=== PATIENT | female | born 1980 | race Caucasian/White ===

== ENCOUNTER 2016-09-23 11:55 | Emergency (ER) | payer OTHER ==
[~2016-09-23] VITALS: Ht 185.4 cm; Wt 99.8 kg
[~2016-09-23 11:55] MED LIST: AMITRIPTYLIN PO; CATAFLAM50 MG PO; DICYCLOMINE HCL10 MG PO; FLAGYL500 MG PO; HYDROCODONE BIT1 T11 PO; KEFLEX500 MG PO; MOTRIN600 MG PO; MOTRIN800 MG PO; NEURONTIN300 MG PO; NKHM; OMEPRAZOLE40 MG PO; ROBITUSSIN AC 10 MG/ PO; ULTRAM50 MG PO; ZITHROMAX250 MG PO
[2016-09-23 12:56] LABS: BASO # 0.1 10*3/uL (0.0-0.1); EOS % 0.8 % (1.0-4.0); HEMATOCRIT 37.8 % (37.0-47.0); HEMOGLOBIN 13.1 g/dl (12.0-16.0); LYMPH # 1.5 10*3/uL (1.3-4.4); LYMPH % 28.2 % (27.0-41.0); MEAN CORPUSCULAR HGB 32.6 pg (27.0-31.0); MEAN CORPUSCULAR HGB CONC 34.7 g/dl (33.0-37.0); MEAN PLATELET VOLUME 10.3 fl (9.6-12.3); MONO # 0.5 10*3/uL (0.1-1.0); MONO % 9.8 % (3.0-9.0); NEUT # 3.1 10*3/uL (2.3-7.9); PLATELET COUNT AUTOMATED 212 10*3/uL (130-400); RED BLOOD COUNT 4.02 10*6/uL (4.10-5.10); RED CELL DISTRI WIDTH 12.3 % (0-14.5); WHITE BLOOD COUNT 5.2 10*3/uL (4.8-10.8)
[2016-09-23 13:11] LABS: ALBUMIN 3.6 gm/dl (3.1-4.5); ALKALINE PHOSPHATASE 64 U/L (45-117); BILIRUBIN, TOTAL 0.4 mg/dl (0.2-1.0); BUN 10 mg/dl (7-24); CARBON DIOXIDE 24 mmol/L (21-32); CHLORIDE 109 mmol/L (98-107); EST GLOM FILT AFRICAN AMERICAN > 60 ml/min; GLUCOSE 108 mg/dL (65-99); POTASSIUM 4.1 mmol/L (3.5-5.1); SGOT/AST 24 IU/L (3-35); SGPT/ALT 44 U/L (12-78); SODIUM 141 mmol/L (136-145); TOTAL PROTEIN 6.9 gm/dL (6.4-8.2)
[2016-09-23] MEDS ORDERED: PROAIR HFA8.5 GM INH (14:22)
[2016-09-23] MEDS ORDERED: PREDNISONE20 M1 PO (14:22)
[2016-09-23] MEDS ORDERED: AUGMENTIN 875875 MG PO (14:22)
[2016-09-27] MEDS ORDERED: FLONASE ALLERG9.9 ML NAS (23:47)
[2016-09-27] MEDS ORDERED: ROBITUSSIN AC 110 ML PO (23:47)
[2016-09-27] MEDS ORDERED: PREDNISONE10 MG PO (23:47)
[2016-09-27] MEDS ORDERED: CLARITIN10 MG PO (23:47)
== END 2016-09-23 14:18 | disposition home or self-care (01) ==
LOC: ED 11:55
PROVIDERS: Nurse Practitioner Family
DX: J20.8 Acute bronchitis due to other specified organisms (principal); R06.2 Wheezing; F17.200 Nicotine dependence, unspecified, uncomplicated; Z88.8 Allergy status to other drugs, medicaments and biological substances

== ENCOUNTER 2016-12-18 20:02 | Emergency (ER) | payer OTHER ==
[~2016-12-18] VITALS: Ht 185.4 cm; Wt 63.5 kg
[~2016-12-18 20:02] MED LIST changes: +AUGMENTIN 875875 MG PO; +CLARITIN10 MG PO; +FLONASE ALLERG9.9 ML NAS; +PREDNISONE10 MG PO; +PREDNISONE20 M1 PO; +PROAIR HFA8.5 GM INH; +ROBITUSSIN AC 110 ML PO
[2016-12-18 20:32] LABS: BILIRUBIN NEGATIVE (NEGATIVE); BLOOD TRACE-INTACT (NEGATIVE); CLARITY CLEAR (CLEAR); COLOR YELLOW (YELLOW); GLUCOSE NEGATIVE (NEGATIVE); KETONE NEGATIVE (NEGATIVE); LEUKO ESTERASE NEGATIVE (NEGATIVE); NITRITE NEGATIVE (NEGATIVE); PH 5.5 (5.0-9.0); PROTEIN NEGATIVE (NEGATIVE); SPECIFIC GRAVITY >= 1.030 (1.005-1.030); UROBILINOGEN 0.2 E.U./dl (0.2-1.0)
[2016-12-18 20:39] LABS: BACTERIA 2+; RBC 0-2 rbc/hpf (0-2); URINE REFLEX COMMENT YES (NO)
[2016-12-18 20:59] LABS: BASO # 0.1 10*3/uL (0.0-0.1); BASO % 0.6 % (0.0-1.0); EOS # 0.1 10*3/uL (0.0-0.4); HEMATOCRIT 34.2 % (37.0-47.0); HEMOGLOBIN 11.9 g/dl (12.0-16.0); LYMPH # 2.2 10*3/uL (1.3-4.4); LYMPH % 28.5 % (27.0-41.0); MEAN CELL VOLUME 95.5 fl (81.0-99.0); MEAN CORPUSCULAR HGB 33.2 pg (27.0-31.0); MEAN CORPUSCULAR HGB CONC 34.8 g/dl (33.0-37.0); MEAN PLATELET VOLUME 10.4 fl (9.6-12.3); MONO # 0.7 10*3/uL (0.1-1.0); MONO % 8.4 % (3.0-9.0); NEUT # 4.7 10*3/uL (2.3-7.9); NEUT % 61.1 % (47.0-73.0); PLATELET COUNT AUTOMATED 231 10*3/uL (130-400); RED BLOOD COUNT 3.58 10*6/uL (4.10-5.10); RED CELL DISTRI WIDTH 12.9 % (0-14.5); WHITE BLOOD COUNT 7.7 10*3/uL (4.8-10.8)
[2016-12-18 21:16] LABS: ALBUMIN 3.6 gm/dl (3.1-4.5); ALKALINE PHOSPHATASE 61 U/L (45-117); BILIRUBIN, TOTAL 0.3 mg/dl (0.2-1.0); BUN 15 mg/dl (7-24); CARBON DIOXIDE 28 mmol/L (21-32); CHLORIDE 108 mmol/L (98-107); EST GLOM FILT AFRICAN AMERICAN > 60 ml/min; GLUCOSE 83 mg/dL (65-99); POTASSIUM 3.9 mmol/L (3.5-5.1); SGOT/AST 16 IU/L (3-35); SGPT/ALT 30 U/L (12-78); SODIUM 143 mmol/L (136-145); TOTAL PROTEIN 6.6 gm/dL (6.4-8.2)
[2016-12-18] MEDS ORDERED: MYLICON, MYLANT80 MG PO (21:36)
== END 2016-12-18 21:40 | disposition home or self-care (01) ==
LOC: ED 20:02
PROVIDERS: Nurse Practitioner Family
DX: K58.9 Irritable bowel syndrome, unspecified (principal); F17.200 Nicotine dependence, unspecified, uncomplicated; Z88.8 Allergy status to other drugs, medicaments and biological substances

== ENCOUNTER 2016-12-23 06:42 | Emergency (ER) | payer OTHER ==
[~2016-12-23] VITALS: Ht 185.4 cm; Wt 108.9 kg
[~2016-12-23 06:42] MED LIST changes: +MYLICON, MYLANT80 MG PO
[2016-12-23] MEDS ORDERED: NAPROSYN500 MG PO (08:14)
== END 2016-12-23 08:17 | disposition home or self-care (01) ==
LOC: ED 06:42
DX: S93.402A Sprain of unspecified ligament of left ankle, initial encounter (principal); K58.9 Irritable bowel syndrome, unspecified; Z88.8 Allergy status to other drugs, medicaments and biological substances; W17.89XA Other fall from one level to another, initial encounter; Y93.89 Activity, other specified; Y92.9 Unspecified place or not applicable; Y99.9 Unspecified external cause status

== ENCOUNTER 2017-01-24 10:27 | Emergency (ER) | payer OTHER ==
[~2017-01-24] VITALS: Ht 185.4 cm; Wt 108.9 kg
[~2017-01-24 10:27] MED LIST changes: +NAPROSYN500 MG PO
[2017-01-24] MEDS ORDERED: NORCO 5-325 TA1 EACH PO (12:41)
== END 2017-01-24 12:46 | disposition home or self-care (01) ==
LOC: ED 10:27
DX: S92.505A Nondisplaced unspecified fracture of left lesser toe(s), initial encounter for closed fracture (principal); F17.200 Nicotine dependence, unspecified, uncomplicated; Z88.8 Allergy status to other drugs, medicaments and biological substances; W22.01XA Walked into wall, initial encounter; Y93.89 Activity, other specified; Y92.9 Unspecified place or not applicable; Y99.9 Unspecified external cause status

== ENCOUNTER 2017-02-15 08:22 | Emergency (ER) | payer OTHER ==
[~2017-02-15] VITALS: Wt 77.1 kg
[~2017-02-15 08:22] MED LIST changes: +NORCO 5-325 TA1 EACH PO
== END 2017-02-15 10:58 | disposition home or self-care (01) ==
LOC: ED 08:22
DX: S46.911A Strain of unspecified muscle, fascia and tendon at shoulder and upper arm level, right arm, initial encounter (principal); F17.200 Nicotine dependence, unspecified, uncomplicated; Z88.8 Allergy status to other drugs, medicaments and biological substances; X50.0XXA Overexertion from strenuous movement or load, initial encounter; Y93.89 Activity, other specified; Y92.9 Unspecified place or not applicable; Y99.9 Unspecified external cause status

== ENCOUNTER 2017-04-06 19:15 | Emergency (ER) | payer OTHER ==
[~2017-04-06] VITALS: Ht 185.4 cm; Wt 59.0 kg
[2017-04-06] MEDS ORDERED: DIFLUCAN150 MG PO (21:10)
[2017-04-06] MEDS ORDERED: KEFLEX500 M1 PO (21:10)
== END 2017-04-06 21:13 | disposition home or self-care (01) ==
LOC: ED 19:15
DX: S90.852A Superficial foreign body, left foot, initial encounter (principal); F17.200 Nicotine dependence, unspecified, uncomplicated; Z88.8 Allergy status to other drugs, medicaments and biological substances; X58.XXXA Exposure to other specified factors, initial encounter; Y93.01 Activity, walking, marching and hiking; Y92.832 Beach as the place of occurrence of the external cause; Y99.8 Other external cause status

== ENCOUNTER → 2017-04-30 | Outpatient (CLI) | payer OTHER ==
[~2017-04-30] MED LIST changes: +DIFLUCAN150 MG PO; +KEFLEX500 M1 PO
[2017-04-30 11:05] LABS: HEMATOCRIT 40.5 % (37.0-47.0); HEMOGLOBIN 13.9 g/dl (12.0-16.0); MEAN CELL VOLUME 95.7 fl (81.0-99.0); MEAN CORPUSCULAR HGB 32.9 pg (27.0-31.0); MEAN CORPUSCULAR HGB CONC 34.3 g/dl (33.0-37.0); MEAN PLATELET VOLUME 9.8 fl (9.6-12.3); RED BLOOD COUNT 4.23 10*6/uL (4.10-5.10); RED CELL DISTRI WIDTH 12.5 % (0-14.5); WHITE BLOOD COUNT 6.7 10*3/uL (4.8-10.8)
[2017-04-30 11:40] LABS: ALBUMIN 3.7 gm/dl (3.1-4.5); ALKALINE PHOSPHATASE 77 U/L (45-117); BUN 14 mg/dl (7-24); CHLORIDE 107 mmol/L (98-107); CHOLESTEROL 145 mg/dL (<200); CREATININE 0.82 mg/dL (0.55-1.02); HDL CHOLESTEROL 57 mg/dl (40-60); LDL CHOLESTEROL 52 mg/dL (9-159); POTASSIUM 4.5 mmol/L (3.5-5.1); SGOT/AST 17 IU/L (3-35); SGPT/ALT 30 U/L (12-78); SODIUM 139 mmol/L (136-145); TOTAL PROTEIN 7.6 gm/dL (6.4-8.2); TRIGLYCERIDES 182 mg/dl (<150); VLDL CHOLESTEROL 36 mg/dL (6-40)
== END | disposition home or self-care (01) ==
LOC: LAB 04-28 11:54
PROVIDERS: Family Medicine
DX: E55.9 Vitamin D deficiency, unspecified (principal); F41.1 Generalized anxiety disorder; E74.00 Glycogen storage disease, unspecified; R53.83 Other fatigue; R05 Cough; E78.1 Pure hyperglyceridemia

== ENCOUNTER → 2017-07-06 | Day surgery (SDC) | payer OTHER ==
[2017-07-01 10:17] VITALS: BP 124/87
[2017-07-01 11:06] LABS: BASO # 0.1 10*3/uL (0.0-0.1); BASO % 0.7 % (0.0-1.0); EOS % 0.5 % (1.0-4.0); HEMATOCRIT 36.3 % (37.0-47.0); LYMPH # 1.8 10*3/uL (1.3-4.4); LYMPH % 24.6 % (27.0-41.0); MEAN CELL VOLUME 92.1 fl (81.0-99.0); MEAN CORPUSCULAR HGB CONC 35.8 g/dl (33.0-37.0); MEAN PLATELET VOLUME 9.8 fl (9.6-12.3); MONO # 0.5 10*3/uL (0.1-1.0); MONO % 6.3 % (3.0-9.0); NEUT # 4.9 10*3/uL (2.3-7.9); NEUT % 67.4 % (47.0-73.0); PLATELET COUNT AUTOMATED 275 10*3/uL (130-400); RED BLOOD COUNT 3.94 10*6/uL (4.10-5.10); RED CELL DISTRI WIDTH 12.8 % (0-14.5); WHITE BLOOD COUNT 7.3 10*3/uL (4.8-10.8)
[2017-07-06] VITALS (7 sets, daily range): BP systolic 124–142; BP diastolic 75–94
[~2017-07-06] VITALS: Ht 185.4 cm; Wt 113.4 kg
[~2017-07-06] MED LIST changes: +ELMIRON100 MG PO; +PYRIDIUM200 M1 PO; +SPRINTEC 35 MCG1 TA1 PO
--- NOTE | ~2017-07-06 | O ---
[place], [place] OPERATIVE NOTE NAME: JEANMARIE KELLER [facility] #: [id number] UNIT #: [id number] ROOM: DOCTOR: KYLER BASSETT MD BIRTHDATE: [birth year] DOS: 07/06/2017 PREOPERATIVE DIAGNOSES: History of pelvic pain, history of endometriosis per previous laparoscopy, dyspareunia, history of IC and status post left oophorectomy. POSTOPERATIVE DIAGNOSES: History of pelvic pain, history of endometriosis per previous laparoscopy, dyspareunia, history of IC and status post left oophorectomy. OPERATIVE FINDINGS: Revealed a completely normal pelvis. OPERATION: Diagnostic laparoscopy. SURGEON: Dr. Bassett and Dr. Arias. ANESTHESIA: General. ESTIMATED BLOOD LOSS: Minimal. REPLACEMENTS: IV fluids and Toradol. COMPLICATIONS: There were no complications. CONDITION: The patient's condition to recovery stable. OPERATIVE SUMMARY: The patient was taken to the operating room in supine position, general anesthesia, endotracheal intubation, lithotomy position, prepped and draped in routine manner. A catheter was placed to straight drain and we then grasped the cervix and placed a cervical manipulator. Once that was completed, we made an infraumbilical and suprapubic incisions under direct visualization, placed a 5 mm trocar sleeve and laparoscope and insufflated with CO2, followed by placement of another 5 mm trocar sleeve and probe through the suprapubic incision. Systematic examination of the pelvis revealed the uterus to be normal in size, configuration and mobility. The anterior and posterior cul-de-sacs were normal. The right tube and ovary were normal. The left tube was normal. There was some minimal scarring along the descending colon with very light filmy adhesions as well as a little bit of scarring in the left side wall of the pelvis. It was all old. There was absolutely no evidence of endometriosis, much less any active endometriosis. Following the survey of the normal pelvis, we did evaluate the appendix, which appeared to be normal, as did the ascending and descending colon. The liver edge was also what was noted it was also normal. The upper abdomen otherwise was free of any other gross disease, adhesions, etc. Once that survey was completed, we rechecked the pelvis and again found absolutely no evidence of any atypicality. The right uterine vasculature was prominent, but that was the only observation at all. Having completed this normal survey, we removed the suprapubic trocar sleeve and probe. Noting no excessive anterior abdominal bleeding, CO2 was allowed to escape, followed by removal of the infraumbilical trocar sleeve and laparoscope. Each incision was closed with subcuticular 3-0 Monocryl suture. Steri-Strips [place], [place] OPERATIVE NOTE NAME: JEANMARIE KELLER UNIT #: [id number] ROOM: DOCTOR: KYLER BASSETT MD BIRTHDATE: [birth year] and dressings placed. Instrumentation was removed from the vagina as well as the Dyer catheter. No excessive bleeding was noted. The patient was then cleaned off, taken out of lithotomy position, awakened, extubated and transferred to recovery in satisfactory condition with clear and adequate urine output, stable sponge and instrument count, good hemostasis and stable vital signs. KYLER BASSETT MD CM:OPRECORD:OPERATIVE NOTE [id number] KYLER BASSETT MD 07/06/17 1007 interface
--- NOTE | ~2017-07-06 | WRIGHTHP ---
[place], [place] PATIENT HISTORY AND PHYSICAL EXAM NAME: JEANMARIE KELLER [facility] #: [id number] UNIT #: [id number] ROOM: DOCTOR: KYLER BASSETT MD BIRTHDATE: [birth year] DOS: 07/06/2017 HISTORY OF PRESENT ILLNESS: This is a very pleasant 37-year-old white female who is a 2, para 0, AB 2, whose last period was approximately 06/18/2017, who I have followed over the last 8 weeks with a diagnosis of interstitial cystitis. She, however, also is complaining of low back pain, chronic pelvic pain and dyspareunia and per review of previous operative summaries has a history of endometriosis and a left oophorectomy based on a previous laparoscopic review. The patient has improved somewhat in regard to her IC, but still has some lingering symptoms and we both feel it is in her best interest to proceed with repeat laparoscopy looking for recurrent endometriosis, etc. The risks, benefits, indications, potential complications and alternatives of diagnostic laparoscopy were given, understanding stated and she signed a consent. PAST MEDICAL HISTORY: Reveals history of IBS, gastritis, endometriosis, acid reflux, lactose intolerance, history of a bleeding ulcer in 2014. PAST SURGICAL HISTORY: She has had a spontaneous miscarriage and elective termination of . She has had the left oophorectomy and laparotomy as we mentioned. SOCIAL HISTORY: She smokes less than half a pack a day. She does not drink. MEDICATIONS: She is taking presently Sprintec control pills, Pyridium 200 mg up to 3 times a day p.r.n. for the IC and Elmiron for the IC as well. REVIEW OF SYSTEMS: Stable. FAMILY HISTORY: Reveals her father with MS, mother with gastric reflux. PHYSICAL EXAMINATION: GENERAL: Pleasant white female. VITAL SIGNS: She is 6 feet 1 inch, 229 pounds, BMI is 30.2, blood pressure 118/76 and oxygen sat is 100%, with no sleep apnea noted. HEENT: Grossly intact. LUNGS: Grossly intact. CARDIAC: Grossly intact. BREASTS: Grossly intact. ABDOMEN: Grossly intact. EXTREMITIES: Grossly intact. NEUROLOGIC: Grossly intact. GENITOURINARY: External genitalia, vagina, cervix normal. Most recent Pap negative. Uterus is anteverted and anteflexed, mildly tender, as is the bladder, but mobile without significant enlargement. The adnexa, left is absent, right palpates normally. RECTAL: Deferred. ASSESSMENT: The patient with interstitial cystitis and still some chronic low back pain, pelvic pain and dyspareunia, with a history of endometriosis, who [place], [place] PATIENT HISTORY AND PHYSICAL EXAM NAME: JEANMARIE KELLER UNIT #: [id number] ROOM: DOCTOR: KYLER BASSETT MD BIRTHDATE: [birth year] would like to be reevaluated at this time at the completion of her rescue therapy for interstitial cystitis. To that end, on 07/06/2017, the patient will undergo diagnostic laparoscopy and treatment as indicated at that time. KYLER BASSETT MD CM:HISPHYS:PATIENT HISTORY AND PHYSICAL EXAMINATION [id number] ANTOINE BASSETT MD 07/02/17 1021 interface
== END | disposition home or self-care (01) ==
LOC: SDC 07-01 09:30
PROVIDERS: Obstetrics & Gynecology
DX: N94.10 Unspecified dyspareunia (principal); J45.909 Unspecified asthma, uncomplicated; K21.9 Gastro-esophageal reflux disease without esophagitis; F41.9 Anxiety disorder, unspecified; Z88.8 Allergy status to other drugs, medicaments and biological substances; F17.210 Nicotine dependence, cigarettes, uncomplicated; F32.9 Major depressive disorder, single episode, unspecified; Z79.899 Other long term (current) drug therapy; Z98.890 Other specified postprocedural states

== ENCOUNTER → 2017-10-05 | Outpatient (CLI) | payer OTHER | END | disposition home or self-care (01) | LOC: D 10:39 | DX: E66.9 Obesity, unspecified (principal) ==

== ENCOUNTER → 2018-03-22 | Outpatient (CLI) | payer OTHER ==
[2018-03-22 08:38] LABS: HEMATOCRIT 38.7 % (37.0-47.0); HEMOGLOBIN 13.2 g/dl (12.0-16.0); MEAN CELL VOLUME 94.6 fl (81.0-99.0); MEAN CORPUSCULAR HGB 32.3 pg (27.0-31.0); MEAN CORPUSCULAR HGB CONC 34.1 g/dl (33.0-37.0); MEAN PLATELET VOLUME 10.2 fl (9.6-12.3); RED BLOOD COUNT 4.09 10*6/uL (4.10-5.10); RED CELL DISTRI WIDTH 12.6 % (0-14.5); WHITE BLOOD COUNT 5.7 10*3/uL (4.8-10.8)
[2018-03-22 09:07] LABS: ALBUMIN 3.8 gm/dl (3.1-4.5); BUN 10 mg/dl (7-24); CHLORIDE 109 mmol/L (98-107); CHOLESTEROL 177 mg/dL (<200); CREATININE 0.69 mg/dL (0.55-1.02); POTASSIUM 4.3 mmol/L (3.5-5.1); SGOT/AST 10 IU/L (3-35); SGPT/ALT 20 U/L (12-78); SODIUM 139 mmol/L (136-145)
[2018-03-22 09:10] LABS: ALKALINE PHOSPHATASE 55 U/L (45-117); HDL CHOLESTEROL 59 mg/dl (40-60); LDL CHOLESTEROL 95 mg/dL (9-159); TOTAL PROTEIN 7.3 gm/dL (6.4-8.2); TRIGLYCERIDES 113 mg/dl (<150); VLDL CHOLESTEROL 23 mg/dL (6-40)
[2018-03-27 05:04] LABS: ALTERNARIA ALTERNATA, IGE <0.10 kU/L (Class 0); AMERICAN ELM, IGE <0.10 kU/L (Class 0); ASPERGILLUS FUMIGATU, IGE <0.10 kU/L (Class 0); BERMUDA GRASS, IGE <0.10 kU/L (Class 0); BIRCH, COMMON SILVER IGE <0.10 kU/L (Class 0); CLADOSPORIUM HERBARU, IGE <0.10 kU/L (Class 0); CORN, IGE <0.10 kU/L (Class 0); D FARINAE MITE 0.78 kU/L (Class II); D PTERONYSSINUS 0.91 kU/L (Class II); DOG DANDER, IGE <0.10 kU/L (Class 0); IMMUNOGLOBULIN IgE 002170 27 IU/mL (0-100); MAPLE LEAF SYCAMORE, IGE <0.10 kU/L (Class 0); MAPLE/BOX ELDER, IGE <0.10 kU/L (Class 0); MILK (COW), IGE <0.10 kU/L (Class 0); MOUSE URINE IGE <0.10 kU/L (Class 0); PEANUT, IGE <0.10 kU/L (Class 0); PENICILLIUM CHRYSOGENUM, IGE <0.10 kU/L (Class 0); ROUGH PIGWEED, IGE <0.10 kU/L (Class 0); SHEEP SORREL (DOCK), IGE <0.10 kU/L (Class 0); SHORT RAGWEED, IGE <0.10 kU/L (Class 0); SOYBEAN, IGE <0.10 kU/L (Class 0); TIMOTHY, IGE <0.10 kU/L (Class 0); WALNUT TREE, IGE <0.10 kU/L (Class 0); WHEAT, IGE <0.10 kU/L (Class 0); WHITE ASH, IGE <0.10 kU/L (Class 0); WHITE MULBERRY, IGE <0.10 kU/L (Class 0); WHITE OAK, IGE <0.10 kU/L (Class 0)
== END | disposition home or self-care (01) ==
LOC: LAB 08:15
PROVIDERS: Family Medicine
DX: Z13.220 Encounter for screening for lipoid disorders (principal); R53.83 Other fatigue; T78.40XA Allergy, unspecified, initial encounter; E55.9 Vitamin D deficiency, unspecified; E66.9 Obesity, unspecified; X58.XXXA Exposure to other specified factors, initial encounter

== ENCOUNTER → 2018-03-29 | Outpatient (CLI) | payer OTHER ==
[2018-03-29 17:31] LABS: FREE T4 0.7 ng/dl (0.76-1.46)
[2018-03-29 17:36] LABS: THYROID STIM HORMONE (HS) 3.04 uIU/ml (0.358-4.75)
[2018-03-30 08:11] LABS: RHEUMATOID ARTHRITIS FACTOR <10.0 IU/mL (0.0-13.9)
== END ==
LOC: LAB 16:34
PROVIDERS: Family Medicine
DX: M25.50 Pain in unspecified joint (principal); R53.83 Other fatigue; M79.1 Myalgia

== ENCOUNTER → 2018-06-21 | Outpatient (CLI) | payer OTHER ==
[2018-06-21 11:58] LABS: FREE T4 0.75 ng/dl (0.76-1.46)
[2018-06-21 12:03] LABS: THYROID STIM HORMONE (HS) 1.79 uIU/ml (0.358-4.75)
== END | disposition home or self-care (01) ==
LOC: LAB 11:03
PROVIDERS: Family Medicine
DX: R53.83 Other fatigue (principal); R94.6 Abnormal results of thyroid function studies

== ENCOUNTER → 2018-08-16 | Outpatient (CLI) | payer OTHER | END | disposition home or self-care (01) | LOC: RAD 08:42 | DX: R06.02 Shortness of breath (principal); J45.909 Unspecified asthma, uncomplicated ==

== ENCOUNTER 2018-12-15 05:21 | Emergency (ER) | payer OTHER ==
[~2018-12-15] VITALS: Ht 185.4 cm; Wt 99.8 kg
[2018-12-15 05:53] LABS: BASO # 0.1 10*3/uL (0.0-0.1); EOS # 0.1 10*3/uL (0.0-0.4); HEMATOCRIT 38.3 % (37.0-47.0); HEMOGLOBIN 13.2 g/dl (12.0-16.0); LYMPH # 2.1 10*3/uL (1.3-4.4); LYMPH % 30.5 % (27.0-41.0); MEAN CELL VOLUME 95.3 fl (81.0-99.0); MEAN CORPUSCULAR HGB 32.8 pg (27.0-31.0); MEAN CORPUSCULAR HGB CONC 34.5 g/dl (33.0-37.0); MEAN PLATELET VOLUME 10.3 fl (9.6-12.3); MONO # 0.5 10*3/uL (0.1-1.0); MONO % 7.5 % (3.0-9.0); NEUT # 4.1 10*3/uL (2.3-7.9); NEUT % 59.3 % (47.0-73.0); PLATELET COUNT AUTOMATED 266 10*3/uL (130-400); RED BLOOD COUNT 4.02 10*6/uL (4.10-5.10); RED CELL DISTRI WIDTH 12.4 % (0-14.5); WHITE BLOOD COUNT 6.9 10*3/uL (4.8-10.8)
[2018-12-15 06:05] LABS: BILIRUBIN NEGATIVE (NEGATIVE); BLOOD NEGATIVE (NEGATIVE); CLARITY SL CLOUDY (CLEAR); COLOR YELLOW (YELLOW); GLUCOSE NEGATIVE (NEGATIVE); KETONE NEGATIVE (NEGATIVE); LEUKO ESTERASE NEGATIVE (NEGATIVE); NITRITE NEGATIVE (NEGATIVE); SPECIFIC GRAVITY 1.025 (1.005-1.030); UROBILINOGEN 0.2 E.U./dl (0.2-1.0)
[2018-12-15 06:09] LABS: ALBUMIN 3.4 gm/dl (3.1-4.5); ALKALINE PHOSPHATASE 54 U/L (45-117); BUN 11 mg/dl (7-24); CHLORIDE 109 mmol/L (98-107); CREATININE 0.75 mg/dL (0.55-1.02); LIPASE 121 U/L (73-393); POTASSIUM 4.3 mmol/L (3.5-5.1); SGOT/AST 12 IU/L (3-35); SGPT/ALT 26 U/L (12-78); SODIUM 139 mmol/L (136-145)
[2018-12-15 06:12] LABS: BETA-HCG, QUANT < 1.0 mIU/mL (1-3)
[2018-12-15 06:23] LABS: BACTERIA TRACE; EPITHELIAL CELLS 41-50; MUCOUS 1+
== END 2018-12-15 06:53 | disposition home or self-care (01) ==
LOC: ED 05:21
PROVIDERS: Student in an Organized Health Care Education/Training Program
DX: R10.30 Lower abdominal pain, unspecified (principal); R10.84 Generalized abdominal pain; Z88.8 Allergy status to other drugs, medicaments and biological substances; Z79.899 Other long term (current) drug therapy

== ENCOUNTER → 2019-04-13 | Outpatient (CLI) | payer OTHER ==
[2019-04-13 10:17] LABS: HEMATOCRIT 40.6 % (37.0-47.0); HEMOGLOBIN 13.9 g/dl (12.0-16.0); MEAN CELL VOLUME 97.1 fl (81.0-99.0); MEAN CORPUSCULAR HGB 33.3 pg (27.0-31.0); MEAN CORPUSCULAR HGB CONC 34.2 g/dl (33.0-37.0); MEAN PLATELET VOLUME 10.2 fl (9.6-12.3); RED BLOOD COUNT 4.18 10*6/uL (4.10-5.10); RED CELL DISTRI WIDTH 12.5 % (0-14.5); WHITE BLOOD COUNT 11.1 10*3/uL (4.8-10.8)
[2019-04-13 10:39] LABS: ALBUMIN 3.9 gm/dl (3.1-4.5); ALKALINE PHOSPHATASE 72 U/L (45-117); BUN 10 mg/dl (7-24); CHLORIDE 106 mmol/L (98-107); CREATININE 0.74 mg/dL (0.55-1.02); POTASSIUM 4.2 mmol/L (3.5-5.1); SGOT/AST 12 IU/L (3-35); SGPT/ALT 27 U/L (12-78); SODIUM 138 mmol/L (136-145); TOTAL PROTEIN 7.6 gm/dL (6.4-8.2)
== END | disposition home or self-care (01) ==
LOC: LAB 09:41
PROVIDERS: Family Medicine
DX: R06.02 Shortness of breath (principal); R05 Cough; R50.9 Fever, unspecified; J32.9 Chronic sinusitis, unspecified; R07.9 Chest pain, unspecified; J45.909 Unspecified asthma, uncomplicated; F17.200 Nicotine dependence, unspecified, uncomplicated

== ENCOUNTER 2019-04-28 15:31 | Emergency (ER) | payer OTHER ==
[~2019-04-28] VITALS: Ht 185.4 cm; Wt 99.8 kg
[2019-04-28 15:58] LABS: BILIRUBIN NEGATIVE (NEGATIVE); BLOOD NEGATIVE (NEGATIVE); CLARITY CLEAR (CLEAR); COLOR YELLOW (YELLOW); GLUCOSE NEGATIVE (NEGATIVE); KETONE NEGATIVE (NEGATIVE); LEUKO ESTERASE NEGATIVE (NEGATIVE); NITRITE NEGATIVE (NEGATIVE); SPECIFIC GRAVITY >= 1.030 (1.005-1.030); UROBILINOGEN 0.2 E.U./dl (0.2-1.0)
[2019-04-29 17:05] LABS: GONOCOCCUS BY NAA Negative (Negative)
== END 2019-04-28 16:47 | disposition home or self-care (01) ==
LOC: ED 15:31
PROVIDERS: Nurse Practitioner Family
DX: N89.8 Other specified noninflammatory disorders of vagina (principal); R10.2 Pelvic and perineal pain; Z20.2 Contact with and (suspected) exposure to infections with a predominantly sexual mode of transmission; Z88.8 Allergy status to other drugs, medicaments and biological substances; Z79.899 Other long term (current) drug therapy

== ENCOUNTER → 2019-10-15 | Outpatient (CLI) | payer BC ==
[2019-10-15 09:48] LABS: HEMATOCRIT 40.4 % (37.0-47.0); HEMOGLOBIN 13.7 g/dl (12.0-16.0); MEAN CELL VOLUME 96.7 fl (81.0-99.0); MEAN CORPUSCULAR HGB 32.8 pg (27.0-31.0); MEAN CORPUSCULAR HGB CONC 33.9 g/dl (33.0-37.0); MEAN PLATELET VOLUME 10.1 fl (9.6-12.3); RED BLOOD COUNT 4.18 10*6/uL (4.10-5.10); RED CELL DISTRI WIDTH 12.3 % (0-14.5); WHITE BLOOD COUNT 5.8 10*3/uL (4.8-10.8)
[2019-10-15 10:17] LABS: FREE T4 0.75 ng/dl (0.76-1.46)
[2019-10-15 10:22] LABS: THYROID STIM HORMONE (HS) 2.28 uIU/ml (0.358-4.75)
[2019-10-16 10:04] LABS: FOLLICLE STIMULATING HORMONE 3.8 mIU/mL (.); LUTEINIZING HORMONE 004283 9.5 mIU/mL (.)
== END ==
LOC: LAB 09:18
PROVIDERS: Family Medicine
DX: I10 Essential (primary) hypertension (principal); F41.9 Anxiety disorder, unspecified; M19.90 Unspecified osteoarthritis, unspecified site; E78.00 Pure hypercholesterolemia, unspecified

== ENCOUNTER → 2025-08-21 | Day surgery (SDC) | payer BC ==
[~2025-08-21] VITALS: Ht 180.3 cm; Wt 81.6 kg
[2025-08-21] VITALS (7 sets, daily range): BP systolic 99–135; BP diastolic 75–93
[~2025-08-21] MED LIST changes: +ACETAMINOPHEN 100 ML IV ONE; +Dexamethasone Sodium Phospha 4 MG/ML VIAL IV ONE; +FAMOTIDINE20 M1 PO; +HYDROmorphONE Hydrochloride 0.5 MG/0.5 ML SYRINGE IV PRN; +HYDROmorphONE Hydrochloride 0.5 MG/0.5 ML SYRINGE ONE; +Ketamine Hydrochloride 500 MG/10 ML VIAL IV ONE; +Lactated Ringer's Solution 2,000 ML IV ONE; +Lidocaine Hydrochloride 5 ML VIAL IV ONE; +MELOXICAM15 MG PO; +Midazolam Hydrochloride 2 MG/2 ML VIAL IV ONE; +Ondansetron Hydrochloride 4 MG/2 ML VIAL IV ONE; +PROPOFOL 200 MG/20 ML VIAL IV ONE; +ROCURONIUM BROMIDE 50 MG/5 ML SYRINGE IV ONE; +SEVOFLURANE 250 ML BOT INH ONE; +SUGAMMADEX SODIUM 200 MG/2 ML VIAL IV ONE; +TOPAMAX25 M3 PO; +WELLBUTRIN XL150 MG PO
[2025-08-21 08:03] LABS: BASO # 0.0 10*3/uL (0.0-0.1); BASO % 0.7 % (0.0-1.0); EOS # 0.1 10*3/uL (0.0-0.4); EOS % 1.5 % (1.0-4.0); MEAN CELL VOLUME 96.2 fl (81.0-99.0); MEAN CORPUSCULAR HGB 32.2 pg (27.0-31.0); MEAN PLATELET VOLUME 9.6 fl (9.6-12.3); MONO # 0.5 10*3/uL (0.1-1.0); MONO % 9.7 % (3.0-9.0); NEUT # 3.1 10*3/uL (2.3-7.9); NEUT % 55.8 % (47.0-73.0); NUCLEATED RED BLOOD CELL 0.0 % (0.0-0.0); NUCLEATED RED BLOOD CELL 0.0 10*3/uL (0.0-0.0); PLATELET COUNT AUTOMATED 288 10*3/uL (130-400); RED CELL DISTRI WIDTH 12.1 % (0-14.5)
== END | disposition home or self-care (01) ==
LOC: SDC 08-18 08:00
PROVIDERS: ATTEND Obstetrics & Gynecology
DX: N92.0 Excessive and frequent menstruation with regular cycle (principal); N80.03 Adenomyosis of the uterus; N83.11 Corpus luteum cyst of right ovary; F41.9 Anxiety disorder, unspecified; K21.9 Gastro-esophageal reflux disease without esophagitis; F17.200 Nicotine dependence, unspecified, uncomplicated; Z98.890 Other specified postprocedural states